=== PATIENT | male | born 1980 | race Two or more races ===

== ENCOUNTER 2019-12-07 11:19 | Emergency (ER) | payer OTHER ==
[~2019-12-07] VITALS: Ht 177.8 cm; Wt 98.6 kg
[2019-12-07 12:09] VITALS: BP 120/81
[2019-12-07] MEDS: KETOROLAC TROMETH 60MG/2ML VIAL IM ONE ×2 (12:42→12:46)
[2019-12-07] MEDS ORDERED: IBUPROFEN 800 MG TAB PO ONE (13:30)
== END 2019-12-07 14:01 | disposition home or self-care (01) ==
LOC: ER 11:19
DX: S39.012A Strain of muscle, fascia and tendon of lower back, initial encounter (principal); X58.XXXA Exposure to other specified factors, initial encounter; Y93.89 Activity, other specified; Y92.89 Other specified places as the place of occurrence of the external cause; Y99.8 Other external cause status
CPT/HCPCS: 72100; 99283; J1885